=== PATIENT | female | born 1955 | race Caucasian/White ===

== ENCOUNTER 2019-08-28 07:15 | Outpatient (CLI) | payer MEDICARE, SELFPAY ==
--- NOTE | ~2019-08-28 | MM_ITS ---
EXAMINATION: MM screening [facility] BI w dhaval HISTORY: Screening mammogram TECHNIQUE: Craniocaudal and mediolateral oblique 3-D tomosynthesis images were obtained and synthetic 2-D images were generated. CAD analysis was submitted and interpreted. COMPARISON: 08/25/2018, 06/25/2016, 06/15/2015 bilateral digital screening mammogram examinations BREAST PARENCHYMAL COMPOSITION: The breasts are heterogeneously dense, which may obscure small masses . FINDINGS: There is no evidence of suspicious mass, calcification, or architectural distortion to sugg est malignancy in either breast. There has been no suspicious interval change. IMPRESSION: 1. No mammographic evidence of malignancy. 2. Recommend routine screening mammography in one year. BI-RADS Category 1: Negative Reviewed, dictated and finalized at location A. OYMENT TRAINING SPECIALIST
== END 2019-08-28 07:16 | disposition home or self-care (01) ==
LOC: ANHIMG 07:23
PROVIDERS: PCP Family Medicine; Visit Provider Family Medicine
DX: Z12.31 Encounter for screening mammogram for malignant neoplasm of breast (principal)
CPT/HCPCS: 77063; 77067

== ENCOUNTER 2020-08-29 07:19 | Outpatient (CLI) | payer MEDICARE, SELFPAY ==
--- NOTE | ~2020-08-29 | MM_ITS ---
EXAMINATION: MM screening [facility] BI w dhaval HISTORY: Screening TECHNIQUE: Craniocaudal and mediolateral oblique 3-D tomosynthesis images were obtained and synthetic 2-D images were generated. CAD analysis was submitted and interpreted. COMPARISON: Comparison to multiple prior studies sequentially, with oldest reviewed study dated 07/2012. BREAST PARENCHYMAL COMPOSITION: There are scattered areas of fibroglandular density. FINDINGS: There is no evidence of suspicious mass, calcification, or architectural distortion to sugg est malignancy in either breast. There has been no suspicious interval change. IMPRESSION: 1. No mammographic evidence of malignancy. 2. Recommend routine screening mammography in one year. BI-RADS Category 1: Negative Reviewed, dictated and finalized at location A. E ARCHITECT
== END 2020-08-29 07:20 | disposition home or self-care (01) ==
PROVIDERS: PCP Family Medicine; Visit Provider Family Medicine
DX: Z12.31 Encounter for screening mammogram for malignant neoplasm of breast (principal)
CPT/HCPCS: 77063; 77067

== ENCOUNTER 2020-09-30 07:51 | Outpatient (CLI) | payer MEDICARE, SELFPAY ==
--- NOTE | ~2020-09-30 | DEXA_ITS ---
Bone Density Report Name: Ling Mccall Age: 65 Sex: Female Ethnicity: White Date of : 1955 Indication: osteopenia; history of glucocorticoids; cancer; hysterectomy; Referring Provider: Nelly Cano Study: Bone densitometry was performed. Exam Date: September 30, 2020 Accession number: [id number] Bone Density: Region BMD T-score Z-score Classification AP Spine (L1-L4) 0.911 -1.2 0.7 Osteopenia Femoral Neck (Left) 0.742 -1.0 0.7 Normal Total Hip (Left) 0.928 -0.1 1.2 Normal Total Hip Bilateral Avg 0.930 -0.1 1.3 Normal Femoral Neck (Right) 0.749 -0.9 0.7 Normal Total Hip (Right) 0.932 -0.1 1.3 Normal World Health Organization criteria for BMD impression classify patients as: Normal (T-score at or above -1.0), Osteopenia (T-score between -1.0 and -2.5), or Osteoporosis (T-score at or below -2.5). 10-year Fracture Risk(1): Major Osteoporotic Fracture 12% Hip Fracture 1.1% Reported Risk Factors: [place] (), Neck BMD=0.742, BMI=34.5, glucocorticoids (1) FRAX(R) Version 3.08. Fracture probability calculated for an untreated patient. Fracture probability may be lower if the patient has received treatment. Previous Exams: Region Exam Age BMD T-score BMD Change BMD Change Date g/cm2 vs Baseline vs Previous AP Spine(L1-L4) 09/30/2020 65 0.911 -1.2 -0.072(-7.3%)# -0.010(-1.0%)# 09/27/2018 63 0.921 -1.1 -0.062(-6.3%)# -0.062(-6.3%)# 05/16/2012 56 0.983 -0.6 Total Hip(Left) 09/30/2020 65 0.928 -0.1 -0.049(-5.0%)# -0.020(-2.1%) 09/27/2018 63 0.948 0.0 -0.029(-3.0%)# -0.029(-3.0%)# 05/16/2012 56 0.976 0.3 Total Hip(Right) 09/30/2020 65 0.932 -0.1 -0.031(-3.2%)# 0.002(0.2%) 09/27/2018 63 0.930 -0.1 -0.033(-3.4%)# -0.033(-3.4%)05/16/2012 56 0.963 0.2 *Denotes significance at 95% confidence level, LSC for AP Spine = 0.022 g/cm2, LSC for Total Hip = 0.027 g/cm2 Clinical Information Provided by Patient: Has taken Glucocorticoids Has used the following medications: HRT (i.e. estrogen/hormone therapy), Vitamin D, Calcium Has the following medical conditions: Cancer, Hysterectomy Patient maximum height was 65.5 Menopause Age: 32 Drinks caffeinated beverages Onset of menses at age 8 Number of children 3 Impression: The patient has low bone mass, based on the Total Spine T-score. The patient has an estimated ten-year risk of hip fracture of 1.1% and an estimated ten-year r
== END 2020-09-30 07:52 | disposition home or self-care (01) ==
PROVIDERS: PCP Family Medicine; Visit Provider Family Medicine
DX: M85.89 Other specified disorders of bone density and structure, multiple sites (principal); N95.9 Unspecified menopausal and perimenopausal disorder
CPT/HCPCS: 77080

== ENCOUNTER 2021-10-08 08:06 | Outpatient (CLI) | payer MEDICARE, SELFPAY ==
--- NOTE | ~2021-10-08 | MM_ITS ---
EXAMINATION: MM screening [facility] BI w dhaval HISTORY: Screening TECHNIQUE: Craniocaudal and mediolateral oblique 3-D tomosynthesis images were obtained and synthetic 2-D images were generated. CAD analysis was submitted and interpreted. COMPARISON: Comparison to multiple prior studies sequentially, with oldest reviewed study dated 05/27. BREAST PARENCHYMAL COMPOSITION: The breasts are heterogenously dense, which may obscure small masses FINDINGS: There is no evidence of suspicious mass, calcification, or architectural distortion to sugg est malignancy in either breast. There has been no suspicious interval change. IMPRESSION: 1. No mammographic evidence of malignancy. 2. Recommend routine screening mammography in one year. BI-RADS Category 1: Negative Reviewed, dictated and finalized at location A.
== END 2021-10-08 08:07 | disposition home or self-care (01) ==
LOC: ANHIMG 08:07
PROVIDERS: PCP Family Medicine; Visit Provider Family Medicine
DX: Z12.31 Encounter for screening mammogram for malignant neoplasm of breast (principal)
CPT/HCPCS: 77063; 77067

== ENCOUNTER 2023-01-25 09:04 | Outpatient (CLI) | payer MEDICARE, SELFPAY ==
--- NOTE | ~2023-01-25 | MM_ITS ---
EXAMINATION: MM screening [facility] BI w dhaval HISTORY: Screening mammogram TECHNIQUE: Craniocaudal and mediolateral oblique 3-D tomosynthesis images were obtained and synthetic 2-D images were generated. CAD analysis was submitted and interpreted. COMPARISON: October 08, 2021, August 29, 2020, August 28, 2019 bilateral screening mammogram examinations BREAST PARENCHYMAL COMPOSITION: The breasts are heterogeneously dense, which may obscure small masses . FINDINGS: There is no evidence of suspicious mass, calcification, or architectural distortion to sugg est malignancy in either breast. There has been no suspicious interval change. IMPRESSION: 1. No mammographic evidence of malignancy. 2. Recommend routine screening mammography in one year. BI-RADS Category 1: Negative Reviewed, dictated and finalized at location A.
== END 2023-01-25 09:05 | disposition home or self-care (01) ==
PROVIDERS: PCP Family Medicine; Visit Provider Nurse Practitioner Family
DX: Z12.31 Encounter for screening mammogram for malignant neoplasm of breast (principal)
CPT/HCPCS: 77063; 77067

== ENCOUNTER 2023-10-18 07:00 | Outpatient (NON) | payer MEDICARE, SELFPAY | END 2023-10-18 07:01 | disposition home or self-care (01) | PROVIDERS: PCP Family Medicine; Visit Provider Internal Medicine Gastroenterology | DX: Z12.11 Encounter for screening for malignant neoplasm of colon (principal); K63.5 Polyp of colon | CPT/HCPCS: 88305 ==

== ENCOUNTER 2023-10-18 09:21 | Day surgery (SDC) | payer MEDICARE, SELFPAY ==
[2023-10-04 14:41] VITALS: BMI 32.3
[2023-10-05 13:53] VITALS: BMI 32.7
--- NOTE | 2023-10-17 14:17 | PM.HPGS ---
History of Present Illness History of Present Illness Consent: Risks, benefits, and alternatives have been discussed and questions answered. Patient agrees to proceed with procedure. Chief complaint: Personal History of Colon Polyps Narrative: Ling Mccall is a 68 year old female Who was referred for colon cancer screening. She has a history of having had polyps removed on previous colonoscopies. Review of Systems Review of Systems: All systems reviewed & are unremarkable except as noted in HPI and below PMFSH Past Medical History Medical History Dyslipidemia Essential (primary) hypertension Hx of cervical cancer Surgical History Surgical History H/O: hysterectomy (~06/1986) Family History Family History Mother Hypertension Carcinoma of colon Father Family history of cardiovascular disease Social History Social History Smoking status: Never smoker Second hand tobacco smoke exposure: No Alcohol intake: never Substance use: never Substance use type: does not use Lack of Transportation: No Lack of Food: Never True Current Housing: I Have Housing Concerned About Future Housing: No Difficulty Paying Gas/Electric Bills: No Difficulty Paying for Meds: No Currently Unemployed: No Education: High School Diploma/GED Difficulty w/ Childcare or Family Care: No Living arrangements: with family Additional living arrangements comments: Occupation/Education: retired Gender identity (if verbalized by the patient): Female Sexual Orientation (if Verbalized by the Patient): Straight or Heterosexual Spiritual care concerns: No Agree to blood products: Yes Meds Home Medications and Allergies Home Medications Medication Instructions Recorded Confirmed Type aspirin 81 mg tablet,delayed 81 mg PO DAILY 10/24/19 10/18/23 History release (Aspir-) cholecalciferol (vitamin D3) 50 50 mcg PO DAILY 09/08/21 10/18/23 History mcg (2,000 unit) capsule lisinopril 20 mg tablet 20 mg PO DAILY #90 tabs 03/14/23 10/18/23 Rx spironolactone 100 mg tablet 100 mg PO DAILY #180 tabs 10/17/23 Rx Allergies Allergy/AdvReac Type Severity Reaction Status Date / Time No Known Allergies Allergy Verified 10/18/23 10:00 Exam Const: General: alert Orientation/consciousness: patient oriented x3 Resp: Auscultation: clear to auscultation bilaterally Cardio: Rhythm: regular rhythm GI: GI Palp: Yes Soft to palpation and No Tenderness to palpation present (GI) Neuro: General: patient oriented x3 Assessment and Plan Assessment and plan (1) Colon cancer screening: Code(s): Z12.11 - Encounter for screening for malignant neoplasm of colon Status: Acute
--- NOTE | 2023-10-18 07:40 | WPDANESEPPF ---
Anes - Initial Pre Proc Eval Procedure: Operation Date: 10/18/23 11:30 Proposed Procedures p Diagnostic Colonoscopy - Emre Mckenzie MD Date/Time: 10/18/23 07:40 Surgeon: Emre Mckenzie MD Pre Op Diagnosis: Personal History of Colon Polyps Patient Data Age: 68 Gender: F Height: 1.63 m Weight: 86.5 kg Allergies Allergy/AdvReac Type Severity Reaction Status Date / Time No Known Allergies Allergy Verified 10/18/23 10:00 Home Medications Medication Instructions Recorded Confirmed Type aspirin 81 mg tablet,delayed 81 mg PO DAILY 10/24/19 10/18/23 History release (Aspir-) cholecalciferol (vitamin D3) 50 50 mcg PO DAILY 09/08/21 10/18/23 History mcg (2,000 unit) capsule lisinopril 20 mg tablet 20 mg PO DAILY #90 tabs 03/14/23 10/18/23 Rx spironolactone 100 mg tablet 100 mg PO DAILY #180 tabs 10/17/23 Rx Patient hx anesthesia problems: none Family hx anesthesia problems: none Results Review: All pre-operative results and documents have been reviewed as part of the pre-operative evaluation. [facility] Past Medical History Medical History Dyslipidemia Essential (primary) hypertension Hx of cervical cancer Surgical History Surgical History H/O: hysterectomy (~06/1986) Family History Family History Mother Hypertension Carcinoma of colon Father Family history of cardiovascular disease Social History Social History Smoking status: Never smoker Second hand tobacco smoke exposure: No Alcohol intake: never Substance use: never Substance use type: does not use Lack of Transportation: No Lack of Food: Never True Current Housing: I Have Housing Concerned About Future Housing: No Difficulty Paying Gas/Electric Bills: No Difficulty Paying for Meds: No Currently Unemployed: No Education: High School Diploma/GED Difficulty w/ Childcare or Family Care: No Living arrangements: with family Additional living arrangements comments: Occupation/Education: retired Gender identity (if verbalized by the patient): Female Sexual Orientation (if Verbalized by the Patient): Straight or Heterosexual Spiritual care concerns: No Agree to blood products: Yes Anes - Eval Final PreProcedure Day of Procedure 10/18/23 07:40 Patient weight: obese Heart: regular rate and rhythm Lungs: clear to auscultation Airway: Mallampati scale class II Neurological: alert and oriented Last oral intake: >/= 8 hours ASA classification: III Emergent: no Anesthetic plan: proceed Anesthesia type and monitoring: general GIVS and standard monitoring Results Review: All pre-operative results and documents have been reviewed as part of the pre-operative evaluation. Informed Consent: The patient's anesthetic plan and its attendant risks and benefits were discussed with the patient/family/POA. Questions were solicited and answers provided to the satisfaction of the patient/family/POA.
[2023-10-18 10:09] VITALS: BP 150/73; PULSE 99; RESP 18; TEMP 36.4; O2SAT 99; BMI 31.8
[2023-10-18] MEDS: LACTATED RINGERS 1,000 ML 150 ML IV CONT (10:29)
[2023-10-18 11:41] VITALS: BP 104/62; PULSE 99; RESP 14; O2SAT 99
[2023-10-18 11:51] VITALS: BP 144/72; PULSE 106; RESP 16; O2SAT 99
[2023-10-18 12:01] VITALS: BP 127/74; PULSE 99; RESP 18; O2SAT 99
--- NOTE | 2023-10-18 12:25 | WPDANESPN ---
Anes - Prog Note Post-Op Date/Time: 10/18/23 12:25 Cardiovascular status: normal Respiratory status: normal Airway patency: baseline Mental status: baseline Post-Op hydration status: normal Vital Signs: Last Vital Signs Temp 36.4 C L 10/18/23 10:09 Pulse 99 10/18/23 12:01 Resp 18 10/18/23 12:01 BP 127/74 10/18/23 12:01 Pulse Ox 99 10/18/23 12:01 O2 Del Method Room Air 10/18/23 12:01 Pain Score (VAS): 0 I/O: Intake & Output 10/17/23 10/18/23 10/18/23 23:59 07:59 15:59 Intake Total 400 Balance 400 Post-procedural complaints: none Patient Feedback: Patient satisfied with anesthetic care. Other Findings: Patient vital signs back to baseline. Patient denies nausea and vomiting. Patient's pain under control. Patient OK for discharge.
== END 2023-10-18 12:13 | disposition home or self-care (01) ==
PROVIDERS: PCP Family Medicine; Visit Provider Internal Medicine Gastroenterology
PROC: 0DJD8ZZ Inspection of Lower Intestinal Tract, Via Natural or Artificial Opening Endoscopic (ICD-10-PCS; CPT 45378; principal; 2023-10-18 11:30)
DX: Z12.11 Encounter for screening for malignant neoplasm of colon (principal); D12.2 Benign neoplasm of ascending colon; D12.5 Benign neoplasm of sigmoid colon; K64.8 Other hemorrhoids
CPT/HCPCS: 45385; 45380

== ENCOUNTER 2024-04-19 07:31 | Outpatient (CLI) | payer MEDICARE, SELFPAY ==
--- NOTE | ~2024-04-19 | MM_ITS ---
EXAMINATION: MM screening [place] BI w dhaval HISTORY: Screening TECHNIQUE: Craniocaudal and mediolateral oblique 3-D tomosynthesis images were obtained and synthetic 2-D images were generated. CAD analysis was submitted and interpreted. COMPARISON: Comparison to multiple prior studies sequentially, with oldest reviewed study dated 05/29. BREAST PARENCHYMAL COMPOSITION: Dense: The breasts are heterogeneously dense, which may obscure small masses FINDINGS: There is no evidence of suspicious mass, calcification, or architectural distortion to sugg est malignancy in either breast. There has been no suspicious interval change. IMPRESSION: 1. No mammographic evidence of malignancy. 2. Recommend routine screening mammography in one year. BI-RADS Category 1: Negative Reviewed, dictated and finalized at location B.
--- NOTE | ~2024-04-19 | DEXA_ITS ---
Bone Density Report Name: ARNULFO VARELA Age: 68 Sex: Female Ethnicity: White Date of : 1955 Indication: osteopenia; cancer; hysterectomy; Referring Provider: QUINTON, JEAN Cancino Study: Bone densitometry was performed. Exam Date: April 19, 2024 Accession number: [id number] Bone Density: Region BMD T-score Z-score Classification AP Spine(L1-L4) 0.921 -1.1 1.0 Osteopenia Femoral Neck (Left) 0.710 -1.3 0.6 Osteopenia Total Hip (Left) 0.870 -0.6 1.0 Normal Femoral Neck (Right) 0.707 -1.3 0.6 Osteopenia Total Hip (Right) 0.882 -0.5 1.1 Normal Total Hip Mean 0.876 -0.6 1.1 Normal World Health Organization criteria for BMD impression classify patients as: Normal (T-score at or above -1.0), Osteopenia (T-score between -1.0 and -2.5), or Osteoporosis (T-score at or below -2.5). 10-year Fracture Risk(1): Major Osteoporotic Fracture 9.3% Hip Fracture 1.2% Reported Risk Factors: [place] (), Neck BMD=0.707, BMI=30.9 (1) FRAX(R) Version 3.08. Fracture probability calculated for an untreated patient. Fracture probability may be lower if the patient has received treatment. Previous Exams: Region Exam Age BMD T-score BMD Change BMD Change Date g/cm2 vs Baseline vs Previous AP Spine (L1-L4) 04/19/2024 68 0.921 -1.1 -0.062 (-6.3%) 0.010 (1.1%)# 09/30/2020 65 0.911 -1.2 -0.072 (-7.3%) -0.010 (-1.0%) 09/27/2018 63 0.921 -1.1 -0.062 (-6.3%) -0.062 (-6.3%) 05/16/2012 56 0.983 -0.6 Total Hip(Left) 04/19/2024 68 0.870 -0.6 -0.106 (-10.9% -0.057 (-6.2%) 09/30/2020 65 0.928 -0.1 -0.049 (-5.0%) -0.020 (-2.1%) 09/27/2018 63 0.948 0.0 -0.029 (-3.0%) -0.029 (-3.0%) 05/16/2012 56 0.976 0.3 Total Hip(Right) 04/19/2024 68 0.882 -0.5 -0.081 (-8.4%) -0.050 (-5.4%) 09/30/2020 65 0.932 -0.1 -0.031 (-3.2%) 0.002 (0.2%) 09/27/2018 63 0.930 -0.1 -0.033 (-3.4%) -0.033 (-3.4%) 05/16/2012 56 0.963 0.2 *Denotes significance at 95% confidence level, LSC for AP Spine = 0.022 g/cm2, LSC for Total Hip = 0.027 g/cm2 # Denotes dissimilar scan types or analysis methods Clinical Information Provided by Patient: Has used the following medications: Vitamin D Has the following medical conditions: Cancer, Hysterectomy Patient maximum height was 65.5 Menopause Age: 32 Drinks caffeinated beverages Onset of menses at age 8 Number of children 3 Impression: The patient has low bone mass, based on the Left Femoral Neck T-score. The patient has an estimated ten-year risk of hip fracture of 1.2% and an estimated ten-year risk of major fracture of 9.3%, based on the WHO FRAX algorithm. No significant bone loss was observed. Discussion: BONE DENSITY IS LOW AT ONE OR MORE SKELETAL SITES. This patient's lowest T-score is low at one or more skeletal sites. It meets the World Health Organization's (WHO) criteria for ?low bone mass? (T-score between -1.0 and -2.5). The patient's 10-year risk of fracture as calculated by FRAX is less than the threshold where pharmacological therapy is recommended by the National Osteoporosis Foundation (NOF). However, all treatment decisions require clinical judgment and consideration of individual patient factors, including patient preferences, comorbidities, previous drug use, risk factors not captured in the FRAX model (e.g., frailty, falls, vitamin D deficiency, increased bone turnover, interval significant decline in bone density) and possible under or overestimation of fracture risk by FRAX. The patient should follow a healthful lifestyle (good nutrition with adequate calcium and vitamin D, and appropriate weight-bearing exercise). Follow-Up: Consider repeating this study in 2 to 3 years to reassess this patient's status, or sooner if there is some new clinical indication. Reported by: RIVERA on 04/19/2024 8:25:00 AM. Reviewed, dictated and finalized at location ATeena VALLE
== END 2024-04-19 07:32 | disposition home or self-care (01) ==
LOC: ANHIMG 07:33
PROVIDERS: PCP Family Medicine; Visit Provider Nurse Practitioner Family
DX: Z12.31 Encounter for screening mammogram for malignant neoplasm of breast (principal); M85.89 Other specified disorders of bone density and structure, multiple sites; Z78.0 Asymptomatic menopausal state
CPT/HCPCS: 77063; 77067; 77080

== ENCOUNTER 2024-04-19 08:32 | Outpatient (CLI) | payer MEDICARE, SELFPAY ==
[2024-04-19 18:48] LABS: Basophils Absolute Auto 0.1 K/mm3 (0.0-0.1); Basophils Percent Auto 0.6 % (0.2-1.2); Eosinophils Absolute Auto 0.3 K/mm3 (0-0.3); Eosinophils Percent Auto 2.8 % (0-4.4); Hematocrit 43.6 % (37.0-47.0); Immature Granulocyte Absolute 0.04 K/mm3 (0.00-0.031); Immature Granulocyte Percent A 0.3 % (0-0.5); Lymphocytes Percent Auto 16.5 % (18.3-44.2); Mean Corpuscular HGB Conc 32.1 g/dl (32-36); Mean Corpuscular Volume 93.6 fl (80-100); Mean Platelet Volume 9.4 fl (7.4-10.4); Monocytes Absolute Auto 0.7 K/mm3 (0.1-0.6); Monocytes Percent Auto 5.6 % (2.6-8.5); Neutrophils Absolute Auto 8.6 K/mm3 (1.3-6.7); Neutrophils Percent Auto 74.2 % (45.5-73.1); Platelet Count Result 530 k/mm3 (150-375); Red Blood Count 4.66 M/mm3 (4.2-5.4); Red Cell Distribution Width 13.2 % (11.5-14.5); White Blood Count 11.5 K/mm3 (4.5-10.0)
[2024-04-19 20:01] LABS: Alanine Aminotransferase 19 U/L (6-35); Albumin Level 4.8 g/dL (3.5-5.1); Alkaline Phosphatase 71 U/L (38-126); Anion Gap 11 mmol/L (4-12); Aspartate Amino Transferase 30 U/L (14-36); Bilirubin,Total 0.7 mg/dL (0.2-1.3); Blood Urea Nitrogen 17 mg/dL (7-17); Calcium 10.4 mg/dL (8.4-10.2); Carbon Dioxide 27 mmol/L (22-30); Chloride 98 mmol/L (98-107); Cholesterol 179 mg/dL (0-200); Estimated Glomerular Filt Rate > 60; Glucose 87 mg/dL (65-110); HDL Direct 36 mg/dL; Potassium 5.3 mmol/L (3.4-5.0); Sodium 136 mmol/L (137-145); Triglycerides 108 mg/dL (<150)
[2024-04-19 20:13] LABS: LDL Cholesterol Direct 113 mg/dL
[2024-04-19 21:40] LABS: Hemoglobin A1C 6.2 % (<5.7)
== END 2024-04-19 08:33 | disposition home or self-care (01) ==
PROVIDERS: PCP Family Medicine; Visit Provider Nurse Practitioner Family
DX: L68.0 Hirsutism (principal); E78.5 Hyperlipidemia, unspecified; I10 Essential (primary) hypertension; R73.03 Prediabetes
CPT/HCPCS: 36415; 80053; 80061; 83036; 84443; 85025

== ENCOUNTER 2025-04-15 08:04 | Outpatient (CLI) | payer MEDICARE, SELFPAY ==
--- OUTSIDE RECORDS SUMMARY | 2025-04-15 08:17 | XMS_ITS | Data Portability ---
Author Organization [place] - [facility] [employer], Main Office Address [address] [place] [address] Care Team Providers Care Civil Project Engineer Name Role Phone MIRTHA HAYDEN Primary Care Provider MIRTHA HAYDEN Referring Provider [phone] Assessment Encounter Date Assessment Date Assessment LastModified by Organization Details LastModified Time 10/10/2024 10/10/2024 69-year-old patient presents today for right knee and left hip pain. The left hip pain has been going on for about 8 years. She states she knows she has arthritis. The pain is starting to get worse and restricting her abilities to stand up from a chair or sit in the car for short periods of time. Two weeks ago she feels like she was walking differently to compensate for the hip pain and she twisted the right knee. She denies any popping or swelling after the injury. For pain she has been using ibuprofen and ice, which helps a little. Review of systems per patient questionnaire Imaging: X-rays of the right knee show no acute bony abnormality or fracture. Mild degenerative osteoarthritic changes with joint space narrowing. Xrays of the left hip reviewed show mild to moderate degenerative changes with joint space narrowing. Physical exam: Knee- Antalgic gait. Range of motion 0-130. Pain with deep flexion. Pain with palpitation over medial joint line. Positive Du's. Stable Evans's, varus/valgus stress. Sensation intact throughout. Hip- No pain with logroll. She has 5/5 strength in flexion, abduction, adduction. Pain with internal rotation. Normal ROM. We will start with a course of physical therapy for the right knee and the left hip. Since ibuprofen does not always help we will try meloxicam. She states that the pain in the right knee has been affecting her sleep. We discussed risks and benefits of a cortisone injection. She elected to proceed with that today. We discussed that since she has arthritis in the hip she could also try a fluoro guided cortisone injection. She would like to wait to see if therapy anti-inflammatori es work for her. We can see her back in about 4-6 weeks to check her progress. She is in agreement with this plan. Not available 10/10/2024 09:57:43 11/09/2024 11/09/2024 69-year-old patient presents today for follow up of right knee and left hip pain. The left hip pain has been going on for about 8 years, but recently got worse and caused her to strain the right knee. She has been attending PT and taking meloxicam. We also did a cortisone injection into the right knee. Today she states she is doing much better, 1/10 pain. Today is her last PT visit and she stopped taking the meloxicam. She does have some soreness in the knee today from bumping it against some furniture. Physical exam: Nonantalgic gait. Full ROM. Tenderness over medial knee from hitting it on furniture. Stable ligaments. Sensation intact. No pain in hip today. At this point she can continue with therapy exercises on her own and take meloxicam as needed. We can see her back if her pain returns or new issues arise. She is in agreement with this plan. Not available 11/09/2024 09:10:16 02/22/2025 02/22/2025 69-year-old patient presents today for follow up of right knee pain. She has attended PT and takes meloxicam as needed. After her last appointment she was doing well, but returns today stating she has been having increased pain in the right knee. The pain is worse at night. She would like to try another cortisone injeciton, as it worked well for her last time. Physical exam: Nonantalgic gait. Full ROM. Tenderness over medial knee. Stable ligaments. Sensation intact. We proceeded with a cortisone injections. She can continue with therapy exercises on her own and take meloxicam as needed. We can see her back if her pain returns or new issues arise. She is in agreement with this plan. Not available 02/22/2025 09:11:33 Plan of Treatment Reminders Order Date Submit Date Provider Last Modified By Organization Details Last Modified Time Details Appointments None recorded. Lab None recorded. Referral physical therapist referral - Please schedule pt for L hip and R knee. Thanks 2024 025 [facility] [place] [facility], [address], [place], [address], 10:53:16 physical therapist referral - Please schedule pt for R knee and L hip. Thanks 2024 025 [facility] [place] [facility], [address], [place], [address], 11:30:34 Procedures injection/ aspiration joint/burs a (PROC) 2024 025 [email or web address] In-Office Order, Internal Use Only DO Not Attach Compendium DO Not Attach Compendium, Do Not Delete/merge, [id number] 11:23:32 injection/ aspiration joint/burs a (PROC) 2024 025 [email or web address] 1 In-Office Order, Internal Use Only DO Not Attach Compendium DO Not Attach Compendium, Do Not Delete/merge, [id number] 09:47:39 Surgeries None recorded. Imaging XR, hip + pelvis, unilateral , 2 or 3 view 2024 025 [email or web address] [facility] [place], [address], [place], [address], 5 11:41:36 XR, knee 2024 025 [email or web address] [facility] [place], [address], [place], [address], 5 10:00:31 Medication Orders bupivacain e HCl 0.5 % (5 mg/mL) injection solution 2024 025 [id number], [address] [place], [address], 5 09:12:29 Kenalog 10 mg/mL suspension for injection 2024 025 [email or web address] [address] [place], [address], 5 09:12:29 meloxicam 15 mg tablet 2024 025 [email or web address] [address] [place], [address], 5 10:40:52 bupivacain e HCl 0.5 % (5 mg/mL) injection solution 2024 025 [email or web address] [address] [place], [address], 5 10:40:52 Kenalog 10 mg/mL suspension for injection 2024 025 [email or web address] [address] [place], [address], 5 10:40:52 Patient TargetsNo targets recorded. Patient InstructionsNo instructions recorded. Reason for Referral Physical Therapist Referral for Pain of right knee joint R knee Please schedule pt for R knee and L hip. Thanks Referring Physician: Callie Galindo, Orthopedic Surgery, Encounter Date: 10/10/2024 Physical Therapist Referral for Pain of left hip joint L hip Please schedule pt for L hip and R knee. Thanks Referring Physician: Callie Galindo, Orthopedic Surgery, Encounter Date: 10/10/2024 Results Created Date Observation Date Name Description Value Unit Range Abnormal Flag Note LastModifiedBy Organization Detail LastModifiedTime 10/11/19 25 XR, hip + pelvi s, unila teral , 2 or 3 view No observ ation record ed. [email or web address] [facility] [place] [address], [place], [address], 10/10/2024 10:00:26 10/11/19 25 XR, knee No observ ation record ed. [email or web address] [facility] [place] [address], [place], [address], 10/10/2024 10:00:17 Result Notes None recorded. Problems Name Problem SNOMED Code Status Onset Date Resolution Date Notes Provider Name and Address Organization Details Recorded Time Pain of right knee joint 866001508268825 Active 2024 NAEL Flanagan, [facility] [employer] 5 09:12:22 Pain of left hip joint 943627570661172 Active 2024 NAEL Flanagan, [place] [facility] [employer] 5 09:12:59 Problem Notes None recorded. Procedures Surgical History Date Name Laterality Status Provider Name and Address Organization Details Recorded Time 5 Ortho - Cortisone Injection completed Callie Galindo NP [address] [address], [place], [address], [place] [facility] [employer] [facility] 02/22/2025 09:11:52 5 Ortho - Cortisone Injection completed Callie Galindo NP [address] [address], [place], [address], [place] [facility] [employer] [facility] 10/10/2024 09:54:43 Imaging Results None recorded. Procedure Notes None recorded. Medical Equipment None Reported. Medications Name Sig Start Date Stop Date Status Note LastModified by Organization Details LastModified Time meloxicam 15 mg tablet TAKE 1 TABLET BY MOUTH EVERY DAY 2024 active Not Available Not Available Not Avai lable lisinopril 20 mg tablet TAKE 1 TABLET BY MOUTH EVERY DAY active Not Available Not Available No t Available bupivacaine HCl 0.5 % (5 mg/mL) injection solution Take 4 mL by injection route. 2024 active Not Available Not Available Not Avai lable spironolacton e 100 mg tablet TAKE 1 TABLET BY MOUTH 1 TO 2 TIMES PER DAY. active Not Available Not Available No t Available Kenalog 10 mg/mL suspension for injection Take 1 mL by injection route. [address] [facility]: 0003- 0494- 20 Not Available Not Available Not Available metformin ER 500 mg tablet,extend ed release 24 hr TAKE 1 TABLET (500 MG) ORALLY DAILY active Not Available Not Available No t Available aspirin active Not Available Not Avail able Not Available Vitals Date Recorded Body height Body mass index (BMI) Body weight Pain severity - 0-10 verbal numeric rating [Score] - Reported Provider Name and Address Organization Details Last Updated DateTime 10/10/2024 162.56 cm 31.8 kg/m2 78808.59 g 7 NAEL Flanagan [facility] [employer] 10/10/2024 09:07:48 Date Recorded Body height Body mass index (BMI) Body weight Pain severity - 0-10 verbal numeric rating [Score] - Reported Provider Name and Address Organization Details Last Updated DateTime 11/09/2024 162.56 cm 31.8 kg/m2 19223.59 g 1 NAEL Flanagan [facility] [employer] 11/09/2024 08:55:07 Date Recorded Body height Body mass index (BMI) Body weight Pain severity - 0-10 verbal numeric rating [Score] - Reported Provider Name and Address Organization Details Last Updated DateTime 02/22/2025 162.56 cm 31.8 kg/m2 68678.59 g 7 NAEL Flanagan [facility] [employer] [facility] 02/22/2025 08:57:18 Social History Question Answer Notes LastModified by Organizat ion Details LastModified Time Tobacco Smoking Status Unknown If Ever Smoked NAEL Flanagan [facility] [employer] 10/10/2024 09:09:55 What Was The Date Of Your Most Recent Tobacco Screening? 10/10/2024 [email or web address] Information not available 10/10/2024 Sex: Unknown Functional Status Question Answer Note LastModified by Organization D etails LastModified Time What is your level of alcohol consumption? None [email or web address] Information not available 10/10/2024 Mental Status None recorded. Family History Relationship Description Onset Age of this Age Resolved Age Notes LastModified by Organization Details LastModified Time Father Heart disease [email or web address] Not available 2024 09:08:56 Mother History of malignant neoplasm [email or web address] Not available 2024 09:09:23 Mother Hypertensive disorder [email or web address] Not available 2024 09:09:34 Medical History Condition Response CANCER: SPECIFY Y HYPERTENSION Y Gynecological HistoryNo gynecological history recorded. Obstetrics History GPAL:G 0 P 0 0 0 0 Past Encounters Encounter ID Performer Location Encounter Start Date Encounter Closed Date Diagnosis/Indication Diagnosis SNOMED-CT Code Diagnosis ICD10 Code Diagnosis IMO Codes Diagnosis Note [id number] Yohannes Yang MD [facility] [place] [address] [place] [address] 10/10/2024 08:52:48 10/10/2024 09:48:57 Pain of right knee joint 1810669911 60119 M25.561 Pain of le ft hip joint 1367427524 15504 M25.263 [id number] Yohannes Yang MD [facility] [place] [address] [place] [address] 11/09/2024 08:50:59 11/09/2024 09:06:57 Pain of left hip joint 8395208063 44675 M25.552 Pain of ri ght knee joint 3357635911 25025 M25.494 [id number] Yohannes Yang MD [facility] [place] [address] [place] [address] 02/22/2025 08:54:15 02/22/2025 09:36:44 Pain of right knee joint 6930190196 79610 M25.561 Health Concerns Section Related Observation LastModified by Organization Detai ls LastModified Time None Recorded Concern Status LastModified by Organization Details LastModified Time None Recorded Advance Directives Directive None Recorded Payers Insurance Date Sequence Insurance Name Policy Number Policy Webster Covered Member ID Webster Member ID Guarantor Name 02/20/2025 1 SIL (MEDICARE REPLACEMENT/ ADVANTAGE - PPO) [id number] 1 Ling Mccall [id number] Ling Mccall OBNatalia Episode No OBEpisode recorded.
[2025-04-15 12:59] LABS: Hematocrit 44.0 % (37.0-47.0); Hemoglobin 13.7 g/dL (12.0-15.0); Immature Granulocyte Percent A 0.6 % (0-0.5); Lymphocytes Absolute Auto 1.85 K/mm3 (0.9-3.2); Mean Corpuscular HGB Conc 31.1 g/dl (32-36); Mean Corpuscular Hemoglobin 29.5 pg (26-34); Mean Corpuscular Volume 94.8 fl (80-100); Nucleated Red Blood Cells Absolute Auto 0.000 K/mm3 (0.0-0.012); Nucleated Red Blood Cells Perc 0.0 % (0.0-0.2); Platelet Count Result 525 k/mm3 (150-375); Red Blood Count 4.64 M/mm3 (4.2-5.4); White Blood Count 11.9 K/mm3 (4.5-10.0)
[2025-04-15 13:09] LABS: Alanine Aminotransferase 21 U/L (6-35); Albumin Level 4.7 g/dL (3.5-5.1); Alkaline Phosphatase 70 U/L (38-126); Anion Gap 11 mmol/L (4-12); Aspartate Amino Transferase 41 U/L (14-36); Bilirubin,Total 0.6 mg/dL (0.2-1.3); Blood Urea Nitrogen 17 mg/dL (7-17); Calcium 10.6 mg/dL (8.4-10.2); Carbon Dioxide 25 mmol/L (22-30); Chloride 100 mmol/L (98-107); Cholesterol 195 mg/dL (0-200); Estimated Glomerular Filt Rate > 60; Glucose 92 mg/dL (65-110); HDL Direct 37 mg/dL; Potassium 5.0 mmol/L (3.4-5.0); Sodium 136 mmol/L (137-145); Total Protein 8.0 g/dL (6.3-8.2); Triglycerides 156 mg/dL (<150)
[2025-04-15 13:41] LABS: Thyroid Stimulating Hormone Reflex 2.420 uIU/mL (0.465-4.68)
[2025-04-15 13:43] LABS: Hemoglobin A1C 5.4 % (<5.7)
== END 2025-04-15 08:05 | disposition home or self-care (01) ==
LOC: ANHGOSHLAB 08:05
PROVIDERS: PCP Family Medicine; Visit Provider Nurse Practitioner Family
DX: R73.03 Prediabetes (principal); I10 Essential (primary) hypertension; E78.5 Hyperlipidemia, unspecified; E55.9 Vitamin D deficiency, unspecified
CPT/HCPCS: 36415; 80053; 80061; 82306; 83036; 84443; 85025

== ENCOUNTER 2025-04-30 13:51 | Outpatient (CLI) | payer MEDICARE, SELFPAY ==
--- NOTE | ~2025-04-30 | MM_ITS ---
EXAMINATION: MM screening dorota BI w dhaval HISTORY: Screening TECHNIQUE: Craniocaudal and mediolateral oblique 3-D tomosynthesis images were obtained and synthetic 2-D images were generated. CAD analysis was submitted and interpreted. COMPARISON: Comparison to multiple prior studies sequentially, with oldest reviewed study dated , 08/28/2019 BREAST PARENCHYMAL COMPOSITION: The breasts are heterogeneously dense, which may obscure small masses. FINDINGS: There is no evidence of suspicious mass, calcification, or architectural distortion to suggest malignancy in either breast. IMPRESSION: 1. No mammographic evidence of malignancy. 2. Recommend routine screening mammography in one year. BI-RADS Category 1: Negative Reviewed, dictated and finalized at location B. T AID NURSE
== END 2025-04-30 13:52 | disposition home or self-care (01) ==
LOC: ANHFOHIMG 13:52
PROVIDERS: PCP Family Medicine; Visit Provider Nurse Practitioner Family
DX: Z12.31 Encounter for screening mammogram for malignant neoplasm of breast (principal)
CPT/HCPCS: 77063; 77067